=== PATIENT | female | born 1940 | race Caucasian/White ===

== ENCOUNTER → 2017-11-21 | Outpatient (CLI) | payer MEDICARE ==
[~2017-11-21] MED LIST: BONE DENSITY C1 EACH; NAPR220; VITAMIN B122500 MC1; VITAMINS
[2017-11-21 09:16] LABS: Source, Urine Clean Catch
[2017-11-21 10:11] LABS: Bilirubin, Urine Neg (Neg); Blood, Urine 3+ (Neg); Glucose Qualitative, Urine Neg (Neg); Ketones, Urine Neg (Neg); Leukocyte Esterase, Urine 1+ (Neg); Nitrite, Urine Neg (Neg); Protein, Urine Neg (Neg); Specific Gravity, Urine 1.015 (1.003-1.022); Urobilinogen, Urine NORM (Normal)
[2017-11-21 10:44] LABS: Appearance, Urine Hazy (Clear); Color, Urine Yellow (P-Yellow)
[2017-11-21 10:45] LABS: Bacteria Mod /hpf; Red Blood Cells, Urine 0-2 /hpf (0-2); Squamous Epithelial Cells Few /hpf (Few)
== END | disposition home or self-care (01) ==
LOC: LAB 09:14
PROVIDERS: Internal Medicine
DX: R31.9 Hematuria, unspecified (principal)
CPT/HCPCS: 81001; 87086

== ENCOUNTER 2019-02-11 14:29 | Emergency (ER) | payer MEDICARE ==
[~2019-02-11] VITALS: Ht 170.2 cm; Wt 90.7 kg
[2019-02-11] MEDS ORDERED: Roxicodone5 MG PO (17:01)
== END 2019-02-11 17:23 | disposition home or self-care (01) ==
LOC: ER 14:29
DX: S82.852A Displaced trimalleolar fracture of left lower leg, initial encounter for closed fracture (principal); Z88.0 Allergy status to penicillin; W18.30XA Fall on same level, unspecified, initial encounter; Z87.891 Personal history of nicotine dependence; Y92.511 Restaurant or cafe as the place of occurrence of the external cause
CPT/HCPCS: 29125; 29515; 36415; 73610; 96374-59; 99283-25; J3010

== ENCOUNTER 2019-02-25 10:52 | Day surgery (SDC) | payer MEDICARE ==
[~2019-02-25] VITALS: Ht 167.6 cm; Wt 88.0 kg
[~2019-02-25 10:52] MED LIST changes: +ALBU90OI6 INH; -BONE DENSITY C1 EACH; +BONE DENSITY C1 EACH PO; +Roxicodone5 MG PO; -VITAMIN B122500 MC1; +VITAMIN B122500 MC1 PO
--- NOTE | 2019-02-25 11:34 | NUR ---
PT ADMITTED TO [facility]. AGREES WITH PLANNED SURGER. LEFT LEG IN BRACE. LUNG SOUNDS CLEAR.
--- NOTE | 2019-02-25 11:37 | NUR ---
NO CHLOROHEXADINE WIPE OR CLIP DONE DUE TO BRACE IN PLACE.
--- NOTE | 2019-02-25 11:57 | NUR ---
PT STATES SHE IS ABLE TO REMOVE BRACE. LEFT ANKLE WITH DRIED UP BLISTERS NOTED ON LEFT ANKLE.
--- NOTE | 2019-02-25 13:12 | NUR ---
DR. VASQUEZ IN TO SEE PT, INFORMED OF OPEN BLISTER.
--- NOTE | 2019-02-25 18:11 | NUR ---
RN DEMONSTRATES USE OF WALKER. PT ABLE TO MOVE FROM SITTING TO STANDING AND NON-WT BEARING. PT ARRIVES AT 1800. PT IS DC'D AT 1812 AFTER BRIEF EVAL BY PT ON PT'S STRENGTH AND PT IS ABLE TO RETURN DEMONSTRATE PROPPER USE OF WALKER AND MOVING FROM SITTING TO STANDING POSITION AND FROM STANDING TO SITTING. Discharge instructions reviewed with patient. Patient verbalizes understanding. Copy given to patient to take home. Patient States Post-Procedure ride home has been arranged. Discharged via wheelchair to private car for ride home.
== END 2019-02-25 22:43 | disposition home or self-care (01) ==
LOC: ORSCMMR 10:52 → ORD 12:45 → ORSCMMR 12:45
PROVIDERS: Orthopaedic Surgery
PROC: 0QSH04Z Reposition Left Tibia with Internal Fixation Device, Open Approach (ICD-10-PCS; principal; 2019-02-25 12:45)
PROC: 0QSK04Z Reposition Left Fibula with Internal Fixation Device, Open Approach (ICD-10-PCS; principal; 2019-02-25 12:45)
DX: S82.842A Displaced bimalleolar fracture of left lower leg, initial encounter for closed fracture (principal); G47.33 Obstructive sleep apnea (adult) (pediatric); Z79.899 Other long term (current) drug therapy; Z87.891 Personal history of nicotine dependence
CPT/HCPCS: 97161; 97530; A9270-GY; C1713; C1769; J1100; J2250; J2405; J2704; J2710; J3010; J3370; J7120

== ENCOUNTER → 2019-09-09 | Outpatient (CLI) | payer MEDICARE | END | disposition home or self-care (01) | LOC: PLD 11:45 → LAB SHORT 11:45 | DX: D22.72 Melanocytic nevi of left lower limb, including hip (principal) | CPT/HCPCS: 88305 ==

== ENCOUNTER → 2021-03-29 | Outpatient (CLI) | payer MEDICARE | END | disposition home or self-care (01) | LOC: LAB 11:01 → LAB SHORT 11:01 | DX: D22.5 Melanocytic nevi of trunk (principal); D22.4 Melanocytic nevi of scalp and neck | CPT/HCPCS: 88305 ==

== ENCOUNTER → 2022-05-11 | Outpatient (CLI) | payer OTHER ==
[2022-05-17 07:10] LABS: HSV-1 DNA Negative (Negative); HSV-2 DNA Negative (Negative)
== END | disposition home or self-care (01) ==
LOC: LAB 15:25 → LAB SHORT 15:25
PROVIDERS: Internal Medicine
DX: B00.9 Herpesviral infection, unspecified (principal)
CPT/HCPCS: 87529

== ENCOUNTER 2022-07-19 06:05 | Day surgery (SDC) | payer OTHER ==
[~2022-07-19] VITALS: Ht 170.2 cm; Wt 91.1 kg
[~2022-07-19 06:05] MED LIST changes: +Estrace Vagin42.5 GM; +Metrocream45 GM; +ZADITOR5 M1
[2022-07-19] MEDS ORDERED: ALBU90OI INH (06:22)
[2022-07-19] MEDS ORDERED: VITAMIN B122500 MC1 PO (06:23)
--- NOTE | 2022-07-19 06:32 | NUR ---
07/19/22 0632 Isabel Laureano AT 0624 PLEDGET AT 0696
--- NOTE | 2022-07-19 08:29 | NUR ---
07/19/22 0829 Willem Briscoe PT D/C'D TO HOME, ABLE TO WALK TO CAR DRIVEN BY FRIEND WILLIAM, PT VS WNL, RESP ON RA, CTA, DENIES PAIN, DIZZINESS, N/V, PERSONAL BELONGINGS GIVEN TO PT, PT VERBALIZED UNDERSTANDING OF D/C INSTRUCTIONS AND F/U APPT. EYE SHIELD AND TAPE CDI.
== END 2022-07-19 08:24 | disposition home or self-care (01) ==
LOC: ORSCSDS 06:05
PROVIDERS: Ophthalmology
PROC: 08RJ3JZ Replacement of Right Lens with Synthetic Substitute, Percutaneous Approach (ICD-10-PCS; principal; 2022-07-19 07:30)
DX: H25.11 Age-related nuclear cataract, right eye (principal)
CPT/HCPCS: J2001; J2250; J3010; J3301; J7040; V2632

== ENCOUNTER → 2022-08-19 | Outpatient (CLI) | payer OTHER ==
[~2022-08-19] MED LIST changes: +ALBU90OI INH
[2022-08-19 15:41] LABS: BASOPHILS ABSOLUTE AUTO 0.05 K/mm3 (0.00-0.23); BASOPHILS PERCENT AUTO 1 % (0-2); EOSINOPHILS PERCENT AUTO 1 % (0-6); Hematocrit 46.6 % (33.0-51.0); Hemoglobin 15.4 g/dL (11.5-16.0); IMMATURE GRAN ABSOLUTE AUTO 0.02 K/mm3 (0.00-0.10); IMMATURE GRAN PERCENT AUTO 0 % (0-1); LYMPHOCYTES ABSOLUTE AUTO 2.48 K/mm3 (0.84-5.20); LYMPHOCYTES PERCENT AUTO 23 % (21-46); MONOCYTES ABSOLUTE AUTO 0.95 K/mm3 (0.16-1.47); MONOCYTES PERCENT AUTO 9 % (4-13); Mean Corpuscular Volume 91 fL (80-100); Mean Platelet Volume 11.7 fL (9.1-12.4); NEUTROPHILS PERCENT AUTO 67 % (41-73); Platelet Count 201 K/mm3 (150-400); RDW Coefficient Variation 13.2 % (11.7-14.2); RDW Standard Deviation 44.7 fL (35.1-46.3); Red Blood Cell Count 5.14 M/mm3 (3.80-5.20)
[2022-08-19 15:49] LABS: Albumin, Blood 3.5 g/dL (3.4-5.0); Albumin/Globulin Ratio 0.9 (0.8-1.8); Bilirubin, Total 0.6 mg/dL (0.1-1.0); Bun/Creatinine Ratio 19.5 (12.0-20.0); Calcium, Blood 8.8 mg/dL (8.5-10.1); Creatinine, Blood 0.82 mg/dL (0.40-1.00); Globulin, Blood 3.7 g/dL (2.2-4.0); Potassium, Blood 3.6 mmol/L (3.5-5.5); Total Protein, Blood 7.2 g/dL (6.4-8.2)
== END | disposition home or self-care (01) ==
LOC: LAB 15:34 → LAB SHORT 15:34
PROVIDERS: Physician Assistant Surgical
DX: R10.31 Right lower quadrant pain (principal)
CPT/HCPCS: 80053; 85025

== ENCOUNTER 2024-12-14 11:34 | Inpatient (IN) | payer OTHER ==
[2024-12-14] VITALS (30 sets, daily range): BP systolic 77–133; BP diastolic 49–94
[~2024-12-14] VITALS: Ht 172.7 cm; Wt 92.5 kg
[~2024-12-14 11:34] MED LIST changes: +VITAMIN D310 MC4
[2024-12-14] MEDS ORDERED: NS 1,000 ML IV SCH (11:45)
[2024-12-14 11:55] LABS: Hematocrit 47.7 % (33.0-51.0); Hemoglobin 15.8 g/dL (11.5-16.0); Mean Corpuscular HGB 29.1 pg (26.0-34.0); Mean Corpuscular HGB Conc 33.1 g/dL (31.5-36.5); Mean Corpuscular Volume 88 fL (80-100); Mean Platelet Volume 12.1 fL (9.1-12.4); NRBC Auto 0.3 /100 WBC (0.0-0.2); Platelet Count 257 K/mm3 (150-400); RDW Coefficient Variation 14.1 % (11.7-14.2); Red Blood Cell Count 5.43 M/mm3 (3.80-5.20); White Blood Cell Count 34.13 K/mm3 (4.00-11.30)
[2024-12-14 12:10] LABS: Albumin, Blood 2.2 g/dL (3.4-5.0); Albumin/Globulin Ratio 0.5 (0.8-1.8); Bilirubin, Total 1.6 mg/dL (0.1-1.0); Bun/Creatinine Ratio 42.9 (12.0-20.0); Calcium, Blood 9.7 mg/dL (8.5-10.1); Creatinine, Blood 1.84 mg/dL (0.40-1.00); Globulin, Blood 4.5 g/dL (2.2-4.0); Potassium, Blood 3.6 mmol/L (3.5-5.5); Total Protein, Blood 6.7 g/dL (6.4-8.2)
[2024-12-14 12:13] LABS: BAND PERCENT MAN 1 % (0-8); BASOPHILS PERCENT MAN 0 % (0-2); EOSINOPHILS PERCENT MAN 0 % (0-6); LYMPHOCYTES ABSOLUTE MAN 1.02 K/mm3 (0.84-5.20); LYMPHOCYTES PERCENT MAN 3 % (21-46); METAMYELOCYTE ABSOLUTE MAN 0.68 K/mm3 (0.00-0.00); METAMYELOCYTE PERCENT MAN 2 % (0-0); MONOCYTES ABSOLUTE MAN 2.38 K/mm3 (0.16-1.47); MONOCYTES PERCENT MAN 7 % (4-13); NEUTROPHILS ABSOLUTE MAN 30.03 K/mm3 (1.96-9.15); SEG NEUTROPHILS PERCENT MAN 87 % (41-73); TOTAL CELLS COUNTED 100
[2024-12-14] MEDS ORDERED: CefTRIAXone Sodium 1,000 MG in NS 50 ML IV ONE (12:15)
[2024-12-14] MEDS ORDERED: Azithromycin 500 MG in NS 250 ML IV ONE (12:15)
[2024-12-14] MEDS ORDERED: Calcium Gluconate 10% 100 MG/ML INJ IV ONE (12:15)
[2024-12-14] MEDS ORDERED: Diltiazem HCl 5 MG / ML 5ML Vial IV ONE (12:50)
[2024-12-14 13:19] LABS: Influenza A, PCR NEGATIVE (NEGATIVE); Influenza B, PCR NEGATIVE (NEGATIVE); Resp Syncytial Virus, PCR NEGATIVE (NEGATIVE); SARS-Cov-2 (COVID-19) PCR, MMC NEGATIVE (NEGATIVE)
[2024-12-14] MEDS ORDERED: Ondansetron 4 MG TAB PO PRN (13:45)
[2024-12-14] MEDS ORDERED: TraZODone HCl 50 MG Tab PO PRN (13:50)
[2024-12-14] MEDS ORDERED: FLU VACC TS2024-25(6MOS UP)/PF 45 MCG/0.5 ML SYRINGE IM PRN (13:50)
[2024-12-14] MEDS ORDERED: Bisacodyl 10 MG Supp PR PRN (13:50)
[2024-12-14] MEDS ORDERED: Magnesium Hydroxide Conc 10 ML UDC PO PRN (13:50)
[2024-12-14] MEDS ORDERED: Esmolol HCL 2500mg/250ml Prema 250 ML IV SCH (13:50)
[2024-12-14] MEDS ORDERED: Ipratropium/Albuterol SulF 2.5-0.5MG/3 ML Amp INH SCH (14:00)
[2024-12-14] MEDS ORDERED: Benzonatate 100 MG Cap PO PRN (14:05)
[2024-12-14] MEDS ORDERED: Aspirin 325 MG Tab PO ONE (14:05)
[2024-12-14] MEDS ORDERED: Mometasone/Formoterol MDI 200/5 mcg 13 GM INH SCH (14:10)
[2024-12-14] MEDS ORDERED: Midazolam HCl 1MG / ML 2ML Vial ONE (15:37)
--- NOTE | 2024-12-14 15:44 | NUR ---
CARDIOVERSION DR. FRANCO AT BEDSIDE. 1544 - 1 MG VERSED ADMINISTERED 1547 - MONITOR SHOWS AFIB RVR c HR OF 122, BP 65/51. SHOCK OF 200J SYNC GIVEN 1548 - CONVERTED TO SINUS RHYTHM, PULSE 74, O2 93%, RR 22. 1551 - ESMOLOL ON SB PER DR. FRANCO, BP 81/60, PULSE 79, O2 93%
[2024-12-14] MEDS ORDERED: Midazolam HCl 1MG / ML 2ML Vial IV ONE (15:55)
[2024-12-14] MEDS ORDERED: Amiodarone HCl 450 MG in Dextrose 5% 500 ML IV SCH (16:25)
[2024-12-14] MEDS ORDERED: Furosemide 10 MG/ML 10ML Vial IV ONE (16:25)
[2024-12-14 17:53] LABS: Source, Urine Foley catheter
[2024-12-14 17:57] LABS: Appearance, Urine Hazy (Clear); Blood, Urine 1+ (Neg); Color, Urine Amber (P-Yellow); Glucose Qualitative, Urine Neg (Neg); Ketones, Urine 1+ (Neg); Leukocyte Esterase, Urine 1+ (Neg); Nitrite, Urine Neg (Neg); Protein, Urine 2+ (Neg); Specific Gravity, Urine 1.015 (1.003-1.022); Urobilinogen, Urine 2+ (Normal)
[2024-12-14] MEDS ORDERED: Midodrine 5 MG Tab PO SCH (18:00)
--- NOTE | 2024-12-14 18:06 | NUR ---
ASSUMED CARE OF PATIENT AT 1509 UPON ADMIT TO UNIT FROM ED. PT ARRIVED ON CPAP SUBSEQUENT, SWITCHED TO 15LPM NRB FOR TRANSFER TO ICU BED, THEN BACK ON CPAP c SETTINGS OF 7/70%. CONTINUOUS CARDIAC MONITORING SHOWS AFIB c HR UP TO 150'S. BP 78/58 c MAP OF 66. ESMOLOL INFUSING AT 25 MCG/KG/HR UPON ADMIT TO UNIT. PT ASKED TO PROVIDE HER NAME AND SHE STATED HER FIRST NAME, THEN STARTED SPELLING OUT WORDS. NOT FOLLOWING COMMANDS, NOT EASILY REDIRECTABLE. MAKES PURPOSEFUL MOVEMENTS, AND ATTEMPTED TO REMOVE BIPAP SEVERAL TIMES. SEE ADMIT ASSESSMENT FOR FULL DETAILS.
--- NOTE | 2024-12-14 18:24 | NUR ---
SHIFT SUMMARY PT CONTINUES TO BE ORIENTED TO PERSON/SELF ONLY. REQUIRES REDIRECTION TO LEAVE CPAP MASK ALONE, BUT COOPERATIVE WITH CARE AND FOLLOWS COMMANDS. PT BACK IN AFIB c HR UP TO 150'S, DR. FRANCO AWARE. AMIO INFUSING. BP STABLE c MAP > 65. LEVOPHED INFUSING AT 1 MCG/KG/MIN, SBP GOAL OF > [address] FRANCO. CPAP SETTINGS 7/70%, O2 SATURATION > 92%. WILL CONTINUE TO MONITOR AND REPORT TO ONCOMING RN.
[2024-12-14 18:33] LABS: Bilirubin, Urine 1+ (Neg)
[2024-12-14 18:34] LABS: Red Blood Cells, Urine 0-2 /hpf (0-2); Squamous Epithelial Cells Rare /hpf (Few)
[2024-12-14 18:35] LABS: Bacteria Many /hpf; Transitional Epithelial Cells Rare /hpf (0-Rare)
[2024-12-14] MEDS ORDERED: dexmedeTOMIDine 100 ML IV SCH (19:20)
[2024-12-14] MEDS ORDERED: Lactobacil 2-S.Thermo-Bifido 1 1 Cap PO SCH (21:00)
[2024-12-15] VITALS (84 sets, daily range): BP systolic 68–150; BP diastolic 37–99
[2024-12-15] MEDS ORDERED: Metoprolol Tartrate 1 MG/ML 5 ML VIAL IV ONE (00:05)
[2024-12-15] MEDS ORDERED: Metoprolol Tartrate 5 ML IV ONE (00:09)
[2024-12-15 00:59] LABS: Bun/Creatinine Ratio 48.6 (12.0-20.0); Calcium, Blood 9.3 mg/dL (8.5-10.1); Creatinine, Blood 1.81 mg/dL (0.40-1.00); Magnesium, Blood 2.6 mg/dL (1.6-2.4); Potassium, Blood 3.5 mmol/L (3.5-5.5)
--- NOTE | 2024-12-15 01:15 | NUR ---
PATIENT UPDATE AT APPROX 2353 PT RHYTHM TO 174 AFIB W/ RVR. PROVIDER NII UPDATED. ORDERS FOR 5MG LOPRESSOR IV RECIEVED. ADMINISTERED W/ MINIMAL EFFECT. HR RETURNS TO 160-180S AFTER 10/15MINS. PT RESTLESS ON BED. SHAKES HEAD NO WHEN ASKED IF SHE HAS CP OR SOB. PRECEDEX DRIP UP TO 1.0MCG/KG/HR, LEVOPHED AT 2MCG/MIN.
[2024-12-15] MEDS ORDERED: Potassium Chloride 40 MEQ in NS 250 ML IV ONE ×2 (01:40→06:40)
--- NOTE | 2024-12-15 02:16 | NUR ---
DR. BALES TO BEDSIDE TO EVALUATE PT
[2024-12-15] MEDS ORDERED: NS 1,000 ML IV SCH ×2 (02:25→06:00)
[2024-12-15] MEDS ORDERED: NS 500 ML IV SCH (02:25)
[2024-12-15] MEDS ORDERED: NS 500 ML IV ONE (02:31)
--- NOTE | 2024-12-15 02:31 | NUR ---
PT "ADOPTED SON" & POA NICOLE ESTEVES CONTACTED & UPDATE PROVIDED, PT HR AFIB W RVR UP TO 180 & SEVERAL INTERVENTIONS BY PRIMARY RN INITIATED & DR BALES AT BEDSIDE AT THIS TIME. DISCUSSED THE POSSIBILITY THAT PT MAY NEED TO BE CARDIOVERTED AGAIN. SANDY VERBALIZES UNDERSTANDING.
[2024-12-15 04:01] LABS: Hematocrit 41.4 % (33.0-51.0); Hemoglobin 13.7 g/dL (11.5-16.0); Mean Corpuscular HGB 29.2 pg (26.0-34.0); Mean Corpuscular HGB Conc 33.1 g/dL (31.5-36.5); Mean Corpuscular Volume 88 fL (80-100); NRBC ABSOLUTE 0.12 K/mm3 (0.00-0.02); NRBC Auto 0.4 /100 WBC (0.0-0.2); Platelet Count 226 K/mm3 (150-400); RDW Coefficient Variation 14.4 % (11.7-14.2); RDW Standard Deviation 45.9 fL (35.1-46.3); Red Blood Cell Count 4.69 M/mm3 (3.80-5.20); White Blood Cell Count 30.37 K/mm3 (4.00-11.30)
[2024-12-15 04:22] LABS: BAND PERCENT MAN 13 % (0-8); BASOPHILS PERCENT MAN 0 % (0-2); EOSINOPHILS PERCENT MAN 0 % (0-6); LYMPHOCYTES ABSOLUTE MAN 0.91 K/mm3 (0.84-5.20); LYMPHOCYTES PERCENT MAN 3 % (21-46); METAMYELOCYTE PERCENT MAN 2 % (0-0); MONOCYTES ABSOLUTE MAN 3.34 K/mm3 (0.16-1.47); MONOCYTES PERCENT MAN 11 % (4-13); NEUTROPHILS ABSOLUTE MAN 25.51 K/mm3 (1.96-9.15); SEG NEUTROPHILS PERCENT MAN 71 % (41-73); TOTAL CELLS COUNTED 100
[2024-12-15 04:24] LABS: Albumin, Blood 1.9 g/dL (3.4-5.0); Albumin/Globulin Ratio 0.5 (0.8-1.8); Bilirubin, Total 0.9 mg/dL (0.1-1.0); Bun/Creatinine Ratio 48.1 (12.0-20.0); Calcium, Blood 8.9 mg/dL (8.5-10.1); Creatinine, Blood 1.85 mg/dL (0.40-1.00); Magnesium, Blood 2.7 mg/dL (1.6-2.4); Potassium, Blood 3.8 mmol/L (3.5-5.5); Total Protein, Blood 5.9 g/dL (6.4-8.2)
--- NOTE | 2024-12-15 05:30 | NUR ---
NOC SHIFT SUMMARY PT ORIENTED TO SELF, ABLE TO REDIRECT W/ CONSISTENT REINFORCEMENT. PT SITTING UP IN BED, PULLING AT MASK AND LINES T/O SHIFT. PRECEDEX DRIP INITIATED DURING SHIFT, CURRENTLY RUNNING AT 1MCG/KG/HR, LEVOPHED AT 1MCG/MIN, AMIODARONE AT 0.5MG/MIN. NS @125/HR. PT REMAINS ON CPAP- SETTINGS UNCHAGED- SEE RT NOTES FOR FURTHER DETAILS. PT HR CURRENTLY 120-140S, AFIB. PT HR INCREASED AT APPROX 0000 TO 160-190S. PROVIDER NII TO ROOM FOR PT EVAL. PT ADOPTED SON (NICOLE) CONTACTED TO DISCUSS POSSIBILITY OF NEED TO CARDIOVERT PT AND WAS AGREEABLE. PT GIVEN FLUID BOLUS DURING EVENT AND RESPONDED WELL W/ DECREASED RATE. LEVO TITRATED TO MAINTAIN MAP>65. PT AFEBRILE. NO BM DURING SHIFT. URINE OUTPUT DECREASED- PROVIDER AWARE. CALL LIGHT W/ IN REACH. PLAN OF CARE ONGOING.
[2024-12-15] MEDS ORDERED: Famotidine 20 MG Tab PO SCH (06:00)
[2024-12-15] MEDS ORDERED: Albumin (Human) 25gm/100ml 100 ML IV ONE (06:40)
--- NOTE | 2024-12-15 07:37 | NUR ---
ASSUMED CARE OF PATIENT AT APPROXIMATELY 0700. REPORT RECEIVED FROM ARGELIA WITT. PT ASLEEP IN BED DURING BEDSIDE REPORT. CONTINUOUS CARDIAC MONITORING IN PLACE SHOWS SR, AMIO INFUSING AT 0.5 MG/MIN. BP STABLE c MAP > 65, LEVOPHED ON SB. CPAP SETTINGS 7/70%, O2 SATURATION > 92%. KOVACS PATENT. PRECEDEX INFUSING AT 1 MCG/KG/HR. SEE SHIFT ASSESSMENT FOR FULL DETAILS.
[2024-12-15 07:57] LABS: Adenovirus Not Detected (NOT DETECT); Coronavirus 229E Not Detected (NOT DETECT); Coronavirus HKU1 Not Detected (NOT DETECT); Coronavirus NL63 Not Detected (NOT DETECT); Coronavirus OC43 Not Detected (NOT DETECT)
[2024-12-15 07:58] LABS: Human Metapneumovirus Not Detected (NOT DETECT); Human Rhinovirus/Enterovirus Not Detected (NOT DETECT); SARS-Cov-2 (COVID-19), BioFire Not Detected (NOT DETECT)
[2024-12-15 07:59] LABS: Bordetella pertussis Not Detected (NOT DETECT); Chlamydophila pneumoniae Not Detected (NOT DETECT); Influenza A/2009-H1 Not Detected (NOT DETECT); Influenza A/H1 Not Detected (NOT DETECT); Influenza A/H3 Not Detected (NOT DETECT); Influenza B Not Detected (NOT DETECT); Mycoplasma pneumoniae Not Detected (NOT DETECT); Parainfluenza Virus 1 Not Detected (NOT DETECT); Parainfluenza Virus 2 Not Detected (NOT DETECT); Parainfluenza Virus 3 Not Detected (NOT DETECT); Parainfluenza Virus 4 Not Detected (NOT DETECT); Respiratory Syncytial Virus Not Detected (NOT DETECT)
[2024-12-15] MEDS ORDERED: Azithromycin 500 MG in NS 250 ML IV SCH (09:00)
[2024-12-15] MEDS ORDERED: Loratadine 10 MG Tab PO SCH (09:00)
[2024-12-15] MEDS ORDERED: Enoxaparin 30 MG/0.3 ML SYR SC SCH ×2 (09:00→21:00)
[2024-12-15] MEDS ORDERED: CefTRIAXone Sodium 2,000 MG in NS 100 ML IV SCH (09:00)
[2024-12-15] MEDS ORDERED: NS 1,000 ML BAG IR SCH (09:10)
[2024-12-15] MEDS ORDERED: NS 250 ML IV PRN (09:15)
[2024-12-15] MEDS ORDERED: LORazepam 2 MG/ML 1ML Injection IV PRN (10:00)
--- NOTE | 2024-12-15 16:14 | NUR ---
"Spiritiual Care | Family Request Pt. is somnolent and on a Bi-pap when this turf keeper visits at bedside. After several attempts to rouse the Pt. Scripture is read, as is the Lord's Prayer as Pts. chart identified her as Temple. Will remain availabel to the Pt."
[2024-12-15] MEDS ORDERED: MethylPREDNISolone Sod Succ 125 MG Vial IV SCH (16:44)
--- NOTE | 2024-12-15 18:07 | NUR ---
NO ACUTE CHANGES THIS SHIFT. PT REMAINS ORIENTED TO SELF ONLY, REQUIRES CONSISTENT REDIRECTION. PT REMAINS IN SINUS RHYTHM WITH HR IN 60'S-80'S. BP STABLE c MAP > 65, LEVO REMAINS ON SB. CPAP SETTINGS 7/35%. PRECEDEX INFUSING AT 1 MCG/KG/HR. ATIVAN X 1 FOR INCREASED AGITATION WITH GOOD BENEFIT. WILL CONTINUE TO MONITOR AND REPORT TO ONCOMING RN.
--- NOTE | 2024-12-15 21:14 | NUR ---
ASSUMPTION OF CARE/ASSESSMENT: ASSUMED CARE OF PT AT 1900, REPORT RECIEVED FROM DENNY STOUT. PT CURRENTLY ON CPAP WITH SETTING AT 7, FIO2 35%, SPO2 90<. PT SEDATED WITH PRECEDEX @ 1.0 MCG, RESPONSIVE TO PAIN AT THIS TIME. SR ON MONITOR WITH HR 60'S, BP STABLE. PT NPO DUE TO ASPIRATION RISK AT THIS TIME. AMIO GTT TURNED OFF AT 1921 PER ORDER. KOVACS PATENT AND DRAINING TO GRAVITY. BED LOWERED, CALL LIGHT IN REACH.
[2024-12-16] VITALS (79 sets, daily range): BP systolic 96–158; BP diastolic 71–98
--- NOTE | 2024-12-16 05:36 | NUR ---
SHIFT SUMMARY: NO ACUTE CHANGES OVERNIGHT; VSS THROUGHOUT THE SHIFT. PT REMAINS ON CPAP WITH SETTINGS 7/35%. PT CONTINUES TO BE CONFUSED, PULLING AT LINES/CORDS; PRECEDEX GTT @ 1.0 MCG. FOELY PATENT AND DRAINING TO GRAVITY. BED LOWERED, CALL LIGHT IN REACH, WILL REPORT OFF TO ONCOMING RN.
[2024-12-16 06:21] LABS: Hematocrit 42.2 % (33.0-51.0); Hemoglobin 14.1 g/dL (11.5-16.0); Mean Corpuscular HGB 29.5 pg (26.0-34.0); Mean Corpuscular HGB Conc 33.4 g/dL (31.5-36.5); Mean Corpuscular Volume 88 fL (80-100); NRBC ABSOLUTE 0.02 K/mm3 (0.00-0.02); NRBC Auto 0.1 /100 WBC (0.0-0.2); Platelet Count 193 K/mm3 (150-400); RDW Coefficient Variation 14.6 % (11.7-14.2); Red Blood Cell Count 4.78 M/mm3 (3.80-5.20); White Blood Cell Count 22.13 K/mm3 (4.00-11.30)
[2024-12-16 06:49] LABS: BAND PERCENT MAN 2 % (0-8); BASOPHILS PERCENT MAN 0 % (0-2); EOSINOPHILS ABSOLUTE MAN 0.22 K/mm3 (0.00-0.68); EOSINOPHILS PERCENT MAN 1 % (0-6); LYMPHOCYTES % ATYPICAL MANUAL 1 % (0-0); LYMPHOCYTES ABSOLUTE MAN 0.88 K/mm3 (0.84-5.20); LYMPHOCYTES PERCENT MAN 3 % (21-46); METAMYELOCYTE ABSOLUTE MAN 0.88 K/mm3 (0.00-0.00); METAMYELOCYTE PERCENT MAN 4 % (0-0); MONOCYTES ABSOLUTE MAN 0.66 K/mm3 (0.16-1.47); MONOCYTES PERCENT MAN 3 % (4-13); NEUTROPHILS ABSOLUTE MAN 19.47 K/mm3 (1.96-9.15); SEG NEUTROPHILS PERCENT MAN 86 % (41-73); TOTAL CELLS COUNTED 100
[2024-12-16 07:01] LABS: Albumin, Blood 2.3 g/dL (3.4-5.0); Albumin/Globulin Ratio 0.6 (0.8-1.8); Bilirubin, Total 0.8 mg/dL (0.1-1.0); Bun/Creatinine Ratio 76.9 (12.0-20.0); Calcium, Blood 8.9 mg/dL (8.5-10.1); Creatinine, Blood 1.04 mg/dL (0.40-1.00); Globulin, Blood 3.7 g/dL (2.2-4.0); Magnesium, Blood 2.8 mg/dL (1.6-2.4); Phosphorus, Blood 3.5 mg/dL (2.5-4.9); Potassium, Blood 4.1 mmol/L (3.5-5.5)
[2024-12-16] MEDS ORDERED: Furosemide 10 MG / ML 2ML Vial IV ONE (07:25)
[2024-12-16] MEDS ORDERED: Albumin (Human) 25gm/100ml 100 ML IV ONE (07:30)
[2024-12-16] MEDS ORDERED: Famotidine 20 MG Tab PO SCH (09:00)
[2024-12-16] MEDS ORDERED: Cefepime HCl 2,000 MG in NS 100 ML IV SCH (09:00)
--- NOTE | 2024-12-16 09:41 | NUR ---
ASSUMED CARE OF PATIENT AT APPROXIMATELY 0700. REPORT RECEIVED FROM ARGELIA BUSTAMANTE. PT SEDATED ON PRECEDEX AT 1.0 MCG/KG/HR AT TIME OF BEDSIDE REPORT. NOT FOLLOWING COMMANDS OR MAKING PURPOSEFUL MOVEMENTS. CONTINUOUS CARDIAC MONITORING SHOWS STACH, BP STABLE c MAP > 65. KOVACS PATENT. CPAP IN PLACE, O2 SATURATIONS > 92%. SEE SHIFT ASSESSMENT FOR FULL DETAILS.
[2024-12-16] MEDS ORDERED: LORazepam 2 MG/ML 1ML Injection IV PRN (13:20)
[2024-12-16] MEDS ORDERED: TPN Consult Notification XX ONE (13:35)
[2024-12-16 15:15] LABS: Base Excess Venous 2.2 mmol/L; Bicarbonate Venous 26.4 mmol/L (24.0-30.0); PCO2 Venous 36.9 mmHg (38-42); pH Blood Venous 7.46 (7.34-7.37)
--- NOTE | 2024-12-16 15:37 | NUR ---
1ST YEAR SIGN HANGER ANDIE HERNANDEZ WITH THIS RN TODAY. INTERVENTIONS THAT WERE CHARTED UNDER HER NAME WERE UNDER THIS RN'S DIRECTION AND SUPERVISION.
--- NOTE | 2024-12-16 15:49 | NUR ---
Spiritual Care Pt. is intubated and generally somnolment. Non family are present Prayed for the Pt. Will remain available to the Pt. and family.
[2024-12-16] MEDS ORDERED: [UNRECOGNIZED DRUG - NUTRITION] IV SCH (17:00)
--- NOTE | 2024-12-16 17:02 | NUR ---
SHIFT SUMMARY PT REMAINS ON PRECEDEX AT 0.8 MCG/KG/HR. PT REMAINS CONFUSED AND PULLS AT LINES AND CORDS. CONTINUOUS CARDIAC MONITORING IN PLACE SHOWS SR WITH PAC'S. BP STABLE c MAP > 65. SWITCHED TO 13LPM HFNC AT APPROXIMATELY 1545. PT TOLERATING WELL c O2 SATURATION > 92%. PPN TO BE INITIATED THIS SHIFT. CBG 192, GOAL OF < [address] FRANCO. BETHANIE PATENT, DIURESED THIS SHIFT. WILL CONTINUE TO MONITOR AND REPORT TO ONCOMING RN.
--- NOTE | 2024-12-16 19:00 | NUR ---
ASSUMPTION OF CARE PT LYING IN BED SEDATED ON 13L HFNC WITH SATURATION >94%. LUNGS ARE COARSE AND VERY DIMINISHED ON THE RIGHT. PT HAS H/O OF POOR CPAP/BIPAP COMPLIANCE BUT WILL ATTEMPT NIGHT TIME USE. PT GROANS AND MOVES EXTREMITIES WHEN AWOKEN WITH VOICE, AND FOLLOWS SOME COMMANDS. NON-VERBAL. A FEBRILE. PRECEDEX INFUSING AT 0.8 MCG/KG/HR. ONE GOAL WILL BE ATTEMPTING DECREASE OF PRECEDEX IN ORDER TO TRY AND CLEAR PT NEUROLOGICALLY. SINUS RHYTHM W PAC'S TO IRREGULAR 80/MIN TO 100/MIN. WILL MONITOR. PER MARIANA NOTE AND HANDOFF REPORT, AMIODARONE WILL BE RESTARTED IF A FIB RVR RETURNS. KOVACS DRAINING TO GRAVITY. CALL LIGHT HANDY. WILL CONTINUE PLAN OF CARE AND MODIFY NEEDED.
[2024-12-17] VITALS (25 sets, daily range): BP systolic 105–159; BP diastolic 67–120
[2024-12-17 04:17] LABS: Hematocrit 42.6 % (33.0-51.0); Mean Corpuscular HGB 29.5 pg (26.0-34.0); Mean Corpuscular HGB Conc 32.9 g/dL (31.5-36.5); Mean Corpuscular Volume 90 fL (80-100); Mean Platelet Volume 12.7 fL (9.1-12.4); NRBC ABSOLUTE 0.02 K/mm3 (0.00-0.02); NRBC Auto 0.1 /100 WBC (0.0-0.2); Platelet Count 207 K/mm3 (150-400); RDW Coefficient Variation 14.5 % (11.7-14.2); RDW Standard Deviation 48.2 fL (35.1-46.3); Red Blood Cell Count 4.75 M/mm3 (3.80-5.20); White Blood Cell Count 22.62 K/mm3 (4.00-11.30)
[2024-12-17 04:35] LABS: Alanine Aminotransfer (ALT/SGP 22 U/L (12-78); Albumin, Blood 2.6 g/dL (3.4-5.0); Albumin/Globulin Ratio 0.8 (0.8-1.8); Alk Phos 57 U/L (50-136); Anion Gap 6 mmol/L (3-11); Aspartate Aminotrans (AST/SGOT 11 U/L (12-37); Bilirubin, Total 0.8 mg/dL (0.1-1.0); Blood Urea Nitrogen 63 mg/dL (8-24); Bun/Creatinine Ratio 76.3 (12.0-20.0); CO2, Blood 30 mmol/L (21-32); Calcium, Blood 8.9 mg/dL (8.5-10.1); Chloride, Blood 116 mmol/L (98-108); Creatinine, Blood 0.83 mg/dL (0.40-1.00); Globulin, Blood 3.4 g/dL (2.2-4.0); Glomerular Filtration Rate 70 (60-); Glucose, Blood 281 mg/dL (70-99); Magnesium, Blood 2.7 mg/dL (1.6-2.4); Phosphorus, Blood 2.8 mg/dL (2.5-4.9); Potassium, Blood 3.2 mmol/L (3.5-5.5); Sodium, Blood 149 mmol/L (136-145); Triglycerides 170 mg/dL (30-160)
[2024-12-17] MEDS ORDERED: Potassium Chloride 40 MEQ in NS 250 ML IV ONE (05:40)
[2024-12-17] MEDS ORDERED: Pantoprazole Sodium 40 MG Injection IV SCH (06:00)
[2024-12-17] MEDS ORDERED: Insulin Human Lispro 100 Units/ML 3ML Syringe SC SCH (07:30)
--- NOTE | 2024-12-17 07:46 | NUR ---
SHIFT SUMMARY PT LYING IN BED SQUIRMING, AWAKE, BUT ORIENTATION DIFFICULT TO ASSESS DUE TO NON VERBAL. PT FOLLOWS SOME COMMANDS. PRECEDEX AT 0.6 MCG/KG/HR. PT HAS NOT TRIED TO GRAB AT ANY LINES YET. HR SINUS RHYTHM IN THE 80'S WITH FREQUENT PAC'S, BORDERLINE IRREGULAR RHYTHM AT TIMES, BUT PT DID NOT TRANSITION TO A FIB DURING SHIFT. BP REMAINED STABLE WITH SBP OF 120-150. AT START OF SHIFT, PT QUICKLY TRANSITIONED FROM 13 HFNC TO CPAP 7/50% AND SHE WAS COMPLIANT FOR ALL BUT 2 HOURS OF SHIFT. AT END OF SHIFT, ABOUT 0530, PT PUT ON 10LPM OF HUMIDIFIED HFNC WITH SATURATION OF 93%. NO BM DURING SHIFT. KOVACS PATENT AND DRAINING YELLOW URINE TO GRAVITY. OUTPUT OF 730ML DURING SHIFT. PT HAS CALL LIGHT. REPORT GIVEN TO ONCOMING NURSE.
[2024-12-17] MEDS ORDERED: Furosemide 10 MG/ML 4ML Vial IV ONE (08:00)
[2024-12-17] MEDS ORDERED: MethylPREDNISolone Sod Succ 125 MG Vial IV SCH (09:00)
[2024-12-17] MEDS ORDERED: Enoxaparin 40 MG/0.4 ML SYR SC SCH (09:00)
--- NOTE | 2024-12-17 10:18 | NUR ---
Assumed care of pt at 0700. Bedside report received from Diogenes STOUT. Pt initially on precedex at 0.6 mcg/kg/hr. RASS -1 to +1. On 10 LPM NC, humidified, to maintain SpO2 90% or greater. Dr Armstrong and Dr Marrero in to see patient this AM. Plan of care discussed. One visitor stopped outside of room briefly for an update - self identified as POA. Pt has since been lifted to recliner and precedex has been titrated off. RASS remains -1 to +1. Oral care performed, pt's mouth is dry and plaque coated. Dental hygenist consult placed.
[2024-12-17] MEDS ORDERED: Fluconazole 200MG/Iso-Sod 100M 100 ML IV ONE (10:25)
--- NOTE | 2024-12-17 10:30 | NUR ---
SpO2 dropped to mid/high 80s. Changed delivery from NC to oxymask with no resolution. Increased from 10 LPM to 15 LPM and SpO2 increased.
[2024-12-17] MEDS ORDERED: TPN Consult Notification XX ONE (11:55)
--- NOTE | 2024-12-17 11:55 | NUR ---
SpO2 mid/high 80s with 15 LPM oxymask. RT administered breathing tx, no improvement. Placed pt on CPAP, no improvement. Placed on BiPAP 14/8 with 100% FiO2. On these settings for approx 10 minutes before SpO2 recovered. Call placed to Dr Armstrong to update.
[2024-12-17] MEDS ORDERED: Metoprolol Tartrate 1 MG/ML 5 ML VIAL IV SCH ×2 (12:00→18:00)
[2024-12-17 13:05] LABS: Base Excess Venous 6.8 mmol/L; Bicarbonate Venous 29.1 mmol/L (24.0-30.0); PCO2 Venous 47.9 mmHg (38-42); pH Blood Venous 7.42 (7.34-7.37)
[2024-12-17 13:19] LABS: Hematocrit 43.9 % (33.0-51.0); Hemoglobin 14.2 g/dL (11.5-16.0); Mean Corpuscular HGB 29.2 pg (26.0-34.0); Mean Corpuscular HGB Conc 32.3 g/dL (31.5-36.5); Mean Corpuscular Volume 90 fL (80-100); Mean Platelet Volume 12.7 fL (9.1-12.4); NRBC ABSOLUTE 0.03 K/mm3 (0.00-0.02); NRBC Auto 0.1 /100 WBC (0.0-0.2); Platelet Count 247 K/mm3 (150-400); RDW Coefficient Variation 14.6 % (11.7-14.2); RDW Standard Deviation 48.3 fL (35.1-46.3); Red Blood Cell Count 4.87 M/mm3 (3.80-5.20); White Blood Cell Count 29.52 K/mm3 (4.00-11.30)
[2024-12-17 13:38] LABS: Bun/Creatinine Ratio 64.1 (12.0-20.0); Calcium, Blood 8.8 mg/dL (8.5-10.1); Creatinine, Blood 0.92 mg/dL (0.40-1.00); Potassium, Blood 4.3 mmol/L (3.5-5.5)
[2024-12-17] MEDS ORDERED: Vancomycin HCL 2,000 MG in NS 500 ML IV ONE (15:30)
[2024-12-17] MEDS ORDERED: Metoprolol Tartrate 1 MG/ML 5 ML VIAL IV ONE (16:05)
[2024-12-17] MEDS ORDERED: MetroNIDAZOLE 500MG/NS 100 ml 100 ML IV SCH (16:30)
[2024-12-17] MEDS ORDERED: [UNRECOGNIZED DRUG - NUTRITION] IV SCH (17:00)
[2024-12-17] MEDS ORDERED: Metoprolol Tartrate 1 MG/ML 5 ML VIAL IV PRN (17:00)
[2024-12-17] MEDS ORDERED: Ipratropium/Albuterol SulF 2.5-0.5MG/3 ML Amp INH PRN (17:10)
[2024-12-17] MEDS ORDERED: Oseltamivir Phosphate 75 MG Cap PO ONE (18:00)
--- NOTE | 2024-12-17 18:45 | NUR ---
SUMMARY Neuro: Precedex has been stopped since this AM. Pt remains either RASS -1 or +1. Pt remains only responsive to painful stimulus. Moves all extremities spontaneously. Resp: Dr Lara in to see patient. Recommended transition to AirVo, Currently on 50 LPM and 40% FiO2. SpO2 93%. Rhonchi in all lung roberts. Weak, nonproductive cough. Cardiac: Pt had converted to atrial fibrillation with RVR this shift. After most recent dose of IV push metoprolol, converted back to sinus arrhythmia. BP stable. GI: Dobhoff placed per orders of Dr Lara. Plan to transition to enteral feedings tomorrow. Placement verified with CXR. : Good urine output this shift. Skin: Unchanged from initial assessment. Psychosocial: This RN updated pt's POAs.
--- NOTE | 2024-12-17 20:56 | NUR ---
ASSUMPTION OF CARE PT LYING IN BED SQUIRMING, ALERT, TRYING TO RESPOND TO QUESTIONS AND WILLING TO FOLLOW SOME COMMANDS. SINUS RHYTHM WITH PAC'S 75-100 AND STABLE BP. >92% SATURATION ON 50L/MIN AND 39% FIO2. DOBHOFF IN PLACE BUT TPN WILL CONTINUE FOR TONIGHT. NO CHEST PAIN/PRESSURE, SOB, N/V, AB PAIN. KOVACS IN PLACE.
[2024-12-17] MEDS ORDERED: Amiodarone HCl 200 MG Tab PO SCH (21:00)
[2024-12-17] MEDS ORDERED: Metoprolol Tartrate 50 MG Tab PT SCH (21:00)
[2024-12-17] MEDS ORDERED: Enoxaparin 80 MG/0.8 ML SYR SC SCH (21:00)
[2024-12-18] VITALS (32 sets, daily range): BP systolic 113–161; BP diastolic 45–125
[2024-12-18] MEDS ORDERED: Insulin Human Lispro 100 Units/ML 3ML Syringe SC SCH
--- NOTE | 2024-12-18 02:18 | NUR ---
TRANFER OF CARE PT LYING IN BED SQUIRMING, AWAKE, BUT ORIENTATION DIFFICULT TO ASSESS DUE TO NON VERBAL/SEVERE MUMBLE. PT FOLLOWS SOME COMMANDS. PT ONLY RECENTLY TRIED TO GRAB AT ANY LINES BUT WAS REDIRECTABLE. HR SINUS RHYTHM IN THE 70'S WITH FREQUENT PAC'S, BORDERLINE IRREGULAR RHYTHM AT TIMES, BUT PT DID NOT TRANSITION TO A FIB DURING SHIFT. BP REMAINED STABLE WITH SBP OF 120-150. PT HAS BEEN ON AIRVO 50L/MIN AND 38% FIO2 WITH SATURATION OF 93% OR GREATER. COUGH IS GETTING STRONGER- ORDER IS IN FOR A SPUTUM SAMPLE. NO BM DURING SHIFT. KOVACS PATENT AND DRAINING YELLOW URINE TO GRAVITY. REPORT GIVEN TO YARA STOUT AT 0215 AND CARE TRANSFERED THEN.
[2024-12-18 04:03] LABS: Hemoglobin 14.1 g/dL (11.5-16.0); Mean Corpuscular HGB 29.4 pg (26.0-34.0); Mean Corpuscular Volume 92 fL (80-100); Mean Platelet Volume 12.8 fL (9.1-12.4); NRBC ABSOLUTE 0.03 K/mm3 (0.00-0.02); NRBC Auto 0.1 /100 WBC (0.0-0.2); Platelet Count 256 K/mm3 (150-400); RDW Coefficient Variation 14.6 % (11.7-14.2); RDW Standard Deviation 49.2 fL (35.1-46.3); Red Blood Cell Count 4.79 M/mm3 (3.80-5.20); White Blood Cell Count 39.06 K/mm3 (4.00-11.30)
--- NOTE | 2024-12-18 04:15 | NUR ---
ASSUMED CARE OF PT AT 0215 FROM ARGELIA SILVER. PT PRESENTS IN BED. WEARING AIRVO AT 50 L/M WITH FIO2 39 PERCENT. PT TENDS TO KEEP HER MOUTH OPEN, ALTHOUGH IS ABLE TO MAINTAINS SATURATIONS > 90 PERCENT. OF NOTE: PT'S TONGUE HAS PATCHY WHITE, YEAST-LIKE, PLAQUES. PT TURNED IN BED WHICH SHE TOLERATED FAIR. BREAK FROM SCD'S DONE AT THIS TIME. WILL CONTINUE TO MONITOR.
[2024-12-18 04:25] LABS: Albumin, Blood 2.6 g/dL (3.4-5.0); Albumin/Globulin Ratio 0.8 (0.8-1.8); Bilirubin, Total 1.1 mg/dL (0.1-1.0); Bun/Creatinine Ratio 66.9 (12.0-20.0); Calcium, Blood 9.1 mg/dL (8.5-10.1); Creatinine, Blood 0.82 mg/dL (0.40-1.00); Globulin, Blood 3.2 g/dL (2.2-4.0); Magnesium, Blood 2.5 mg/dL (1.6-2.4); Phosphorus, Blood 2.6 mg/dL (2.5-4.9); Total Protein, Blood 5.8 g/dL (6.4-8.2)
--- NOTE | 2024-12-18 06:30 | NUR ---
HAVE USED YANKEUR TO SUCTION ORAL. PT HAS COUGH WITH THIS. WAS ABLE TO REMOVE SMALL AMOUNT OF CREAM COLORED SECRETIONS. PT HAS HAD A HACKY TYPE COUGH. THIS CLEARED SOME AFTER SUCTIONING. WILL CONTINUE TO MONITOR PT, AND WILL REPORT OFF TO ONCOMING RN.
[2024-12-18] MEDS ORDERED: MethylPREDNISolone Sod Succ 125 MG Vial IV SCH (09:00)
[2024-12-18] MEDS ORDERED: Oseltamvir Phosphate 30 MG Cap PO SCH (09:00)
--- NOTE | 2024-12-18 15:24 | NUR ---
NIKOS HAS BEGAN WAKING UP MORE AND IS PULLING OUT HER HFNC, WHEN SHE MOVES IT OUT AND HAS IT FLUSH AGAINST HER FACE HER SATURATIONS BEGIN TO DROP. DISCUSSED WITH , SHE ASKS TO RESTART PRECEDEX DRIP. PRECEDEX DRIP INITIATED AT 0.4, THEN TITRATED TO 0.6 FOR CONTINUED RESTLESS/AGITATION. PT'S BP WAS BEGINNING TO CLIMB WELL. PT IS BEGINNING TO SETTLE SOME. WAS LISTENING TO VERBAL REDIRECT BUT SHORT DURATION. TUBE FEEDINGS HAVE BEEN INITIATED VIA DOBHOFF, TOLERATING WELL. TPN HAS BEEN DISCONTINUED.
[2024-12-18] MEDS ORDERED: Vancomycin HCL 1,750 MG in NS 500 ML IV SCH (16:00)
[2024-12-18] MEDS ORDERED: Vancomycin HCL 1,500 MG in NS 250 ML IV SCH (17:00)
--- NOTE | 2024-12-18 17:59 | NUR ---
NIKOS CONTINUED TO BE VERY RESTLESS, PULLING AT THE HFNC, REMOVED THE DOBHOFF BY SEVERAL CM'S. FEEDING IMMEDIATELY STOPPED, DOBHOFF REPLACED. PT AGITATED AND RESTLESS, PRECEDEX INCREASED TO 1MCG/KG/HR.
--- NOTE | 2024-12-18 21:45 | NUR ---
ASSUMPTION OF CARE PT LYING IN BED SQUIRMING, EYES CLOSED, MOANING. SEDATED ON PRECEDEX 0.6. SINUS RHYTHM WITH RATE 60-80, NO PAC'S AND STABLE BP. >92% SATURATION ON 50L/MIN AND 39% FIO2. 2ND DOBHOFF IN PLACE WITH TUBE FEED AT 35. WILL INCREASE AT MIDNIGHT IF TOLERATING. NO SIGNS OF CHEST PAIN/PRESSURE, SOB, N/V, AB PAIN. KOVACS IN PLACE.
[2024-12-19] VITALS (40 sets, daily range): BP systolic 84–163; BP diastolic 59–117
[2024-12-19 04:09] LABS: Hematocrit 41.4 % (33.0-51.0); Hemoglobin 13.3 g/dL (11.5-16.0); Mean Corpuscular HGB 29.6 pg (26.0-34.0); Mean Corpuscular HGB Conc 32.1 g/dL (31.5-36.5); Mean Corpuscular Volume 92 fL (80-100); Mean Platelet Volume 12.8 fL (9.1-12.4); NRBC ABSOLUTE 0.02 K/mm3 (0.00-0.02); NRBC Auto 0.1 /100 WBC (0.0-0.2); Platelet Count 196 K/mm3 (150-400); RDW Coefficient Variation 14.7 % (11.7-14.2); RDW Standard Deviation 49.2 fL (35.1-46.3); Red Blood Cell Count 4.49 M/mm3 (3.80-5.20); White Blood Cell Count 29.22 K/mm3 (4.00-11.30)
[2024-12-19 04:29] LABS: Albumin, Blood 2.2 g/dL (3.4-5.0); Albumin/Globulin Ratio 0.8 (0.8-1.8); Bilirubin, Total 1.2 mg/dL (0.1-1.0); Bun/Creatinine Ratio 67.9 (12.0-20.0); Calcium, Blood 8.5 mg/dL (8.5-10.1); Creatinine, Blood 0.85 mg/dL (0.40-1.00); Globulin, Blood 2.9 g/dL (2.2-4.0); Magnesium, Blood 2.4 mg/dL (1.6-2.4); Phosphorus, Blood 2.4 mg/dL (2.5-4.9); Potassium, Blood 4.4 mmol/L (3.5-5.5); Total Protein, Blood 5.1 g/dL (6.4-8.2)
[2024-12-19 05:01] LABS: BAND PERCENT MAN 2 % (0-8); BASOPHILS PERCENT MAN 0 % (0-2); EOSINOPHILS PERCENT MAN 0 % (0-6); LYMPHOCYTES ABSOLUTE MAN 1.16 K/mm3 (0.84-5.20); LYMPHOCYTES PERCENT MAN 4 % (21-46); METAMYELOCYTE ABSOLUTE MAN 0.87 K/mm3 (0.00-0.00); METAMYELOCYTE PERCENT MAN 3 % (0-0); MONOCYTES ABSOLUTE MAN 1.46 K/mm3 (0.16-1.47); MONOCYTES PERCENT MAN 5 % (4-13); MYELOCYTE ABSOLUTE MAN 0.87 K/mm3 (0.00-0.00); MYELOCYTE PERCENT MAN 3 % (0-0); NEUTROPHILS ABSOLUTE MAN 24.83 K/mm3 (1.96-9.15); SEG NEUTROPHILS PERCENT MAN 83 % (41-73); TOTAL CELLS COUNTED 100
--- NOTE | 2024-12-19 07:37 | NUR ---
SHIFT SUMMARY PT LYING IN BED SQUIRMING AN GROANING WHEN AWAKE, WHICH HAPPENS TO VOICE. PRECEDEX AT 0.6. PT MOVES ALL EXTREMITIES AND CRIES IN PAIN WITH MOVEMENT OF RIGHT ARM IN PARTICULAR. NO SIGN OF PAIN OBSERVED AND PT WOULD NOT ANSWER DIRECTED QUESTIONS YESTERDAY WHEN SHE MAINTAINED GREATER MENTAL CLARITY AND SOME ABILITY TO ANSWER QUESTIONS VERBALLY AND NON-VERBALLY. PT TEMPORAL TEMPERATURE READINGS DECREASED SINCE START OF SHIFT, FINISHING AT 96.4. SHOULD BE FOLLOWED AND REASSESSED. HR SINUS KELLY IN THE MID TO UPPER 50'S WITH STABLE BP'S ALL SHIFT. PT LUNGS SOUND CLEAR EVER WITH SOME COARSENESS AUDIBLE IN RIGHT LUNG. PT DID NOT COUGH MUCH THIS SHIFT COMPARED TO LAST, POSSIBLY DUE TO SEDATION. CHEST PHYSIO, STARTED YESTERDAY, MAY HAVE HELPED TO CLEAR AIRWAY WELL. SPUTUM SAMPLE IS STILL DESIRED. AIRVO WAS UTILIZED ALL EVENING AT 40L/MIN AND 50 50% FIO2 PRODUCING SATURATIONS >92%. TUBE FEEDS AT 45ML/HR WITH GOAL OF 50. NO BM DURING SHIFT. NO VOMITING OR SIGNS OF NAUSEA. KOVACS PATENT AND DRAINING LESS URINE (500 FOR SHIFT) THAT IS NOTICEABLY DARKER IN COLOR THAN PREVIOUS DAYS/NIGHTS. PT HAS CALL LIGHT NEARBY AND REPORT WAS GIVEN TO ONCOMING NURSE.
[2024-12-19] MEDS ORDERED: PredniSONE 20 MG Tab PO SCH (09:00)
[2024-12-19 15:30] LABS: Vancomycin, Trough 15.8 ug/mL (5.0-10.0)
--- NOTE | 2024-12-19 18:31 | NUR ---
NIKOS IS UP IN THE RECLINER, SHE HAS BEEN UP SINCE EARLY AFTERNOON. SHE IS DOWN TO 4L/NC, HER SATS HAVE BEEN >95% WHILE UP IN THE CHAIR. SHE IS OFF OF PRECEDEX SINCE EARLY THIS AM, VANCOMYCIN AND FLAGYL CONTINUE SCHEDULED. SHE ASKED FOR WATER THIS MORNING. SHE WON'T OPEN HER EYES, SHE CONTINUES TO TRY TO PULL OFF THE OXYGEN. TUBE FEEDING CONTINUES AT GOAL RATE.
[2024-12-20] VITALS (34 sets, daily range): BP systolic 127–163; BP diastolic 60–107
[2024-12-20] MEDS ORDERED: Peg 400/Hypromellose/Glycerin 15 DROP/ML BTL BOTHEYES PRN (02:40)
[2024-12-20 03:39] LABS: Hemoglobin 14.2 g/dL (11.5-16.0); Mean Corpuscular HGB 29.6 pg (26.0-34.0); Mean Corpuscular HGB Conc 32.3 g/dL (31.5-36.5); Mean Corpuscular Volume 92 fL (80-100); Mean Platelet Volume 12.3 fL (9.1-12.4); Platelet Count 243 K/mm3 (150-400); RDW Coefficient Variation 14.8 % (11.7-14.2); RDW Standard Deviation 49.3 fL (35.1-46.3); Red Blood Cell Count 4.79 M/mm3 (3.80-5.20); White Blood Cell Count 35.09 K/mm3 (4.00-11.30)
[2024-12-20 04:05] LABS: Albumin, Blood 2.3 g/dL (3.4-5.0); Albumin/Globulin Ratio 0.8 (0.8-1.8); Bilirubin, Total 1.1 mg/dL (0.1-1.0); Bun/Creatinine Ratio 67.9 (12.0-20.0); Calcium, Blood 8.3 mg/dL (8.5-10.1); Creatinine, Blood 0.78 mg/dL (0.40-1.00); Globulin, Blood 2.9 g/dL (2.2-4.0); Magnesium, Blood 2.5 mg/dL (1.6-2.4); Phosphorus, Blood 1.2 mg/dL (2.5-4.9); Potassium, Blood 4.3 mmol/L (3.5-5.5); Total Protein, Blood 5.2 g/dL (6.4-8.2)
[2024-12-20] MEDS ORDERED: Sodium Phosphate 15 MM in Dextrose 5% 500 ML IV STA (06:41)
[2024-12-20] MEDS ORDERED: Dextrose 5% 1,000 ML IV SCH ×2 (07:00→08:00)
[2024-12-20] MEDS ORDERED: Potassium Phosphate Dibasic 15 MM in Dextrose 5% 250 ML IV ONE (07:30)
--- NOTE | 2024-12-20 08:00 | NUR ---
[place] of care: Does not open eyes or speak. Intermittently nods yes to questions. Moves upper extremities purposefully & lower extremities to painful stimuli. Does not follow commands for me. OOB to chair with lift. In NSR in the 60s. SBP 150-160. On 6L NC. Osorio cath patent & secure draining clear yellow urine. Bowel movement today. TF infusing at goal via dobhoff. PIV & powerglide in place. D5 gtt started per orders. K phos replacement infusing. Discussed plan of care with Dr. Armstrong during her rounds. Will continue to monitor.
--- NOTE | 2024-12-20 08:10 | NUR ---
SHIFT SUMMARY PT LYING IN BED SLEEPING. AWAKES TO VOICE BUT IS NO VERBAL. WILL ANSWER SOME QUESTIONS AND FOLLOW SOME COMMANDS. PT MOVES ALL EXTREMITIES AND CRIES IN PAIN WITH MOVEMENT OF RIGHT ARM IN PARTICULAR. HR SINUS IN THE MID TO UPPER 60'S WITH STABLE BP'S ALL SHIFT. PT LUNGS SOUND CLEAR EVER WITH SOME COARSENESS AUDIBLE IN RIGHT LUNG. PT STILL HAS WEAK COUGH. SPUTUM SAMPLE IS STILL DESIRED. PT ON NC 4-6L PRODUCING SATURATIONS >92%. TUBE FEEDS AT GOAL OF 50. NO BM DURING SHIFT. NO VOMITING OR SIGNS OF NAUSEA. KOVACS PATENT AND DRAINING. 700 OUT FOR SHIFT. PHOSPHOROUS LOW THIS MORNING AT 1.2. PROVIDER WAS CALLED AND REPLACEMENT ORDERED. PT HAS CALL LIGHT NEARBY AND REPORT WAS GIVEN TO ONCOMING NURSE.
[2024-12-20] MEDS ORDERED: Sodium Phosphate Mono/Dibasic 250 MG Tab PO SCH (09:00)
[2024-12-20 12:31] LABS: Albumin, Blood 2.3 g/dL (3.4-5.0); Anion Gap 5 mmol/L (3-11); Blood Urea Nitrogen 48 mg/dL (8-24); Bun/Creatinine Ratio 65.3 (12.0-20.0); CO2, Blood 30 mmol/L (21-32); Calcium, Blood 7.8 mg/dL (8.5-10.1); Chloride, Blood 119 mmol/L (98-108); Creatinine, Blood 0.74 mg/dL (0.40-1.00); Glomerular Filtration Rate 81 (60-); Glucose, Blood 190 mg/dL (70-99); Phosphorus, Blood 2.3 mg/dL (2.5-4.9); Potassium, Blood 4.6 mmol/L (3.5-5.5); Sodium, Blood 149 mmol/L (136-145)
--- NOTE | 2024-12-20 18:30 | NUR ---
End of shift summary: Continues with altered mental status. Intermittently open eyes to pain, localizes with bilat upper extremities, withdraws to pain in bilat lower extremities, non-verbal except for to state "no" when stimulating her for patient care such as repositioning. OOB in chair with lift for most of the day. In NSR & SBPs between 150-160. Weaned from 6L NC to 4L NC with oxygen saturations 92-93% for the most part. Osorio cath in place with 800cc yellow output. Having liquid diarrhea -- rectal management tube placed. TF infusing through dobhoff at goal. D5 at 75cc/hr. Phos replaced. Orders for PCU -- will await transfer & continue to monitor.
--- NOTE | 2024-12-20 19:53 | NUR ---
ASSUMPTION OF CARE PT LYING IN BED SLEEPING. OPENS HER EYES WITH STRONG URGING. FOLLOWS SOME COMMANDS AND USES THE WORD "NO" SINUS RHYTHM WITH RATE 60-80, NO PAC'S AND STABLE BP. >92% SATURATION ON 4L NC. 2ND DOBHOFF IN PLACE WITH TUBE FEED AT 50. PT DENIES CHEST PAIN/PRESSURE, SOB, N/V, AB PAIN. KOVACS IN PLACE. RECTAL TUBE IN PLACE BUT LEAKING.
[2024-12-21] VITALS (8 sets, daily range): BP systolic 110–148; BP diastolic 53–70
[2024-12-21 03:53] LABS: Hematocrit 42.1 % (33.0-51.0); Hemoglobin 13.3 g/dL (11.5-16.0); Mean Corpuscular HGB 29.4 pg (26.0-34.0); Mean Corpuscular HGB Conc 31.6 g/dL (31.5-36.5); Mean Corpuscular Volume 93 fL (80-100); NRBC ABSOLUTE 0.02 K/mm3 (0.00-0.02); NRBC Auto 0.1 /100 WBC (0.0-0.2); Platelet Count 203 K/mm3 (150-400); RDW Coefficient Variation 15.1 % (11.7-14.2); RDW Standard Deviation 51.4 fL (35.1-46.3); Red Blood Cell Count 4.53 M/mm3 (3.80-5.20); White Blood Cell Count 26.83 K/mm3 (4.00-11.30)
[2024-12-21 03:54] LABS: Mean Platelet Volume 13.2 fL (9.1-12.4)
[2024-12-21 04:09] LABS: Albumin, Blood 1.9 g/dL (3.4-5.0); Albumin/Globulin Ratio 0.7 (0.8-1.8); Bilirubin, Total 0.9 mg/dL (0.1-1.0); Bun/Creatinine Ratio 68.1 (12.0-20.0); Calcium, Blood 7.5 mg/dL (8.5-10.1); Creatinine, Blood 0.66 mg/dL (0.40-1.00); Globulin, Blood 2.9 g/dL (2.2-4.0); Magnesium, Blood 2.4 mg/dL (1.6-2.4); Phosphorus, Blood 2.7 mg/dL (2.5-4.9); Potassium, Blood 4.9 mmol/L (3.5-5.5); Total Protein, Blood 4.8 g/dL (6.4-8.2)
[2024-12-21 04:19] LABS: BAND PERCENT MAN 3 % (0-8); BASOPHILS PERCENT MAN 0 % (0-2); EOSINOPHILS PERCENT MAN 0 % (0-6); LYMPHOCYTES PERCENT MAN 6 % (21-46); METAMYELOCYTE PERCENT MAN 3 % (0-0); MONOCYTES PERCENT MAN 3 % (4-13); MYELOCYTE ABSOLUTE MAN 0.53 K/mm3 (0.00-0.00); MYELOCYTE PERCENT MAN 2 % (0-0); NEUTROPHILS ABSOLUTE MAN 23.07 K/mm3 (1.96-9.15); SEG NEUTROPHILS PERCENT MAN 83 % (41-73); TOTAL CELLS COUNTED 100
--- NOTE | 2024-12-21 06:15 | NUR ---
SHIFT SUMMARY PT LYING IN BED SLEEPING. AWAKES TO VOICE BUT IS NO VERBAL. WILL ANSWER SOME QUESTIONS AND FOLLOW SOME COMMANDS. PT MOVES ALL EXTREMITIES AND MOANS IN PAIN WITH MOVEMENT OF RIGHT ARM IN PARTICULAR. HR SINUS IN THE MID TO UPPER 60'S WITH STABLE BP'S ALL SHIFT. PT LUNGS SOUND CLEAR WITH EXP RHONCHI. . PT STILL HAS WEAK COUGH. SPUTUM SAMPLE SENT. PT ON NC 4L PRODUCING SATURATIONS >92%. TUBE FEEDS AT GOAL OF 50. RECTAL TUBE IS PATENT BUT LEAKING. NO VOMITING OR SIGNS OF NAUSEA. KOVACS PATENT AND DRAINING. 820 OUT FOR SHIFT. ELECTROLYTE LABS HAVE STABILISED OR ARE ON TRACK TO- NA 146, PH 2.7, K 4.6, PT HAS CALL LIGHT NEARBY AND REPORT WILL BE GIVEN TO ONCOMING NURSE.
--- NOTE | 2024-12-21 07:25 | NUR ---
ASSUMED CARE OF PATIENT AT APPROXIMATELY 0700. BEDSIDE REPORT RECEIVED FROM ARGELIA SILVER. PT ROUSES TO VERBAL STIMULI. SHE STATES SHE IS AT HOME BUT IS EASILY REDIRECTABLE. CONTINUOUS CARDIAC MONITORING IN PLACE SHOWS SR, BP STABLE. ON 4LPM O2 VIA NC c O2 SATURATION > 92%. KOVACS AND RECTAL TUBE IN PLACE. SEE SHIFT ASSESSMENT FOR FULL DETAILS.
[2024-12-21] MEDS ORDERED: Furosemide 10 MG / ML 2ML Vial IV ONE (08:00)
[2024-12-21 15:25] LABS: Vancomycin, Trough 14.7 ug/mL (5.0-10.0)
--- NOTE | 2024-12-21 17:02 | NUR ---
SHIFT SUMMARY PT REMAINS ORIENTED TO PERSON/SELF ONLY. PT EARLIER THOUGHT THAT SHE WAS AT HOME BUT NOW REPEATS "I WANT TO GO HOME" AND WHEN ASKED IF SHE KNOWS WHERE SHE IS SHE SAYS "MMMM" BUT CANNOT COMPLETE THOUGHT. FREQUENT WORD SEARCHING. ABLE TO FOLLOW COMMANDS, MAKE PURPOSEFUL MOVEMENTS, AND MAKE NEEDS KNOWN. AFEBRILE AND DENIES PAIN. CONTINUOUS CARDIAC MONITORING IN PLACE SHOWS SB-SR c HR IN 50'S-60'S. BP STABLE c MAP > 65. DENIES CP/PRESSURE AND SOB. ON 4LPM O2 VIA NC c SATURATIONS > 92%. LS CLEAR, STILL HAS PRODUCTIVE COUGH. PIVOT 1.5 INFUSING AT GOAL RATE OF 50 mL/HR c 200 mL FLUSHES Q4H. RECTAL TUBE IN PLACE c OCCASIONAL LEAKING. KOVACS PATENT AND DRAINING TO GRAVITY. WILL CONTINUE TO MONITOR AND REPORT TO ONCOMING RN.
[2024-12-22] VITALS (9 sets, daily range): BP systolic 91–112; BP diastolic 45–72
[2024-12-22 05:34] LABS: Hemoglobin 11.6 g/dL (11.5-16.0); Mean Corpuscular HGB 28.9 pg (26.0-34.0); Mean Corpuscular HGB Conc 31.4 g/dL (31.5-36.5); Mean Corpuscular Volume 92 fL (80-100); Mean Platelet Volume 12.4 fL (9.1-12.4); Platelet Count 189 K/mm3 (150-400); RDW Coefficient Variation 14.9 % (11.7-14.2); RDW Standard Deviation 49.8 fL (35.1-46.3); Red Blood Cell Count 4.02 M/mm3 (3.80-5.20); White Blood Cell Count 21.27 K/mm3 (4.00-11.30)
[2024-12-22 05:59] LABS: Albumin, Blood 1.7 g/dL (3.4-5.0); Albumin/Globulin Ratio 0.7 (0.8-1.8); Bilirubin, Total 0.7 mg/dL (0.1-1.0); Bun/Creatinine Ratio 57.7 (12.0-20.0); Calcium, Blood 7.3 mg/dL (8.5-10.1); Creatinine, Blood 0.75 mg/dL (0.40-1.00); Globulin, Blood 2.5 g/dL (2.2-4.0); Magnesium, Blood 2.4 mg/dL (1.6-2.4); Phosphorus, Blood 3.3 mg/dL (2.5-4.9); Potassium, Blood 3.4 mmol/L (3.5-5.5); Total Protein, Blood 4.2 g/dL (6.4-8.2)
--- NOTE | 2024-12-22 06:48 | NUR ---
END OF SHIFT: THIS PT HAD NO ACUTE EVENTS OVERNIGHT AND HAS BEEN SLEEPING WELL. CURRENTLY RESTING IN BED AND AWAITING A TRANSFER OUT OF THE ICU.
[2024-12-22] MEDS ORDERED: Potassium Chloride 20 MEQ TabCR PO ONE (07:40)
[2024-12-22] MEDS ORDERED: Potassium Chloride 20 MEQ/15 ML UDC PO ONE (08:05)
[2024-12-22] MEDS ORDERED: Enoxaparin 100 MG/ML 1ML SYR SC SCH (09:00)
--- NOTE | 2024-12-22 11:14 | NUR ---
AM NOTE... ASSUMED CARE OF PT AT 0700, PT IS A&Ox4. PT IS IN SB IN THE 40'S-50'S PT IS NOT SYMPTOMATIC, BP IS SOFT WITH SBPs IN THE 90'S BUT MAPS>65. L/S RHONCHI IN THE UPPER LOBES THAT CLEAR WITH COUGHING, DIM IN THE LOWER LOBES MORE SO ON THE RIGHT THAN THE LEFT FINE CRACKLES NOTED IN THE BILATERAL BASES. PT IS ON 4L NC WITH O2 SATS>90% THIS WAS TITRATED DOWN TO 3L NC. PT WAS SEEN BY SPEECH THIS AM, PT IS NOW REGULAR DIET WITH THIN LIQUIDS, TUBE FEEDS STOPPED. PT WAS GIVEN A BATH AND IS CURRENTLY UP IN THE RECLINER CHAIR.
[2024-12-22] MEDS ORDERED: Furosemide 10 MG / ML 2ML Vial IV SCH (15:00)
[2024-12-22] MEDS ORDERED: Insulin Human Lispro 100 Units/ML 3ML Syringe SC SCH (16:30)
--- NOTE | 2024-12-22 17:55 | NUR ---
SHIFT SUMMARY... NO ACUTE NEGATIVE CHANGES NOTED THIS SHIFT. PT HAS BEEN UP IN THE CHAIR MOST OF THE DAY. SHE WORKED WITH PT/OT AND STOOD SEVERAL TIMES FROM THE RECLINER. PT WAS ABLE TO EAT 85% OF HER LUNCH AND IS CURRENTLY WORKING ON HER DINNER. PT IS REQUESTING THE DOBHOFF TO BE REMOVED. PT'S HR HAS BEEN IN THE 50'S-60'S T/O THIS SHIFT SB/SR, BP HAS BEEN SOFT BUT STABLE WITH SBPs 90'S-100'S AND MAPS>65. PT HAS NOT HAD A BM SINCE THE RECTAL TUBE WAS REMOVED. 750MLS OF DARK YELLOW URINE DRAINED FROM THE KOVACS THIS SHIFT. PT CONTINUES TO BE ON 3L NC WITH O2 SATS 89-94%.
--- NOTE | 2024-12-22 20:00 | NUR ---
ASSUMED CARE OF PT AT 1900. REPORT RECEIVED AT BEDSIDE. PT PRESENTS IN BEDSIDE CHAIR. ALERT AND ORIENTED PLEASANT AND COOPERATIVE WITH CARE AND ASSESSMENT. NO COMPLAINTS OF CHEST PAIN OR PRESSURE. NO COMPLAINTS OF DYSPNEA. DISCUSSED PLAN TO HAVE PT RETURN TO BED FOR THE NIGHT. PT VOICES AGREEMENT. WILL REVIEW CHART AND PLAN OF CARE FOR THIS PT.
[2024-12-23] VITALS (44 sets, daily range): BP systolic 57–117; BP diastolic 35–68
[2024-12-23 05:01] LABS: Hematocrit 32.8 % (33.0-51.0); Hemoglobin 10.5 g/dL (11.5-16.0); Mean Corpuscular HGB 29.6 pg (26.0-34.0); Mean Corpuscular Volume 92 fL (80-100); Platelet Count 201 K/mm3 (150-400); RDW Coefficient Variation 15.1 % (11.7-14.2); RDW Standard Deviation 50.4 fL (35.1-46.3); Red Blood Cell Count 3.55 M/mm3 (3.80-5.20)
[2024-12-23 05:31] LABS: Albumin, Blood 1.7 g/dL (3.4-5.0); Anion Gap 5 mmol/L (3-11); Blood Urea Nitrogen 48 mg/dL (8-24); Bun/Creatinine Ratio 54.6 (12.0-20.0); CO2, Blood 28 mmol/L (21-32); Calcium, Blood 7.2 mg/dL (8.5-10.1); Chloride, Blood 112 mmol/L (98-108); Creatinine, Blood 0.88 mg/dL (0.40-1.00); Glomerular Filtration Rate 66 (60-); Glucose, Blood 104 mg/dL (70-99); Magnesium, Blood 2.9 mg/dL (1.6-2.4); Phosphorus, Blood 3.6 mg/dL (2.5-4.9); Potassium, Blood 4.2 mmol/L (3.5-5.5); Sodium, Blood 141 mmol/L (136-145)
--- NOTE | 2024-12-23 06:39 | NUR ---
PT HAS BEEN ABLE TO REST SOME THIS NIGHT. AWAKENS EASILY WHEN STAFF IS IN ROOM. REMAINS VERY PLEASANT AND COOPERATIVE. DID CHANGE POWERGLIDE DRESSING THIS AM. PT TOLERATES WELL. 2 L/M O2 MAINTAINS SATURATIONS > 90 PERCENT. WILL CONTINUE TO MONITOR PT, AND WILL REPORT OFF TO ONCOMING RN.
[2024-12-23] MEDS ORDERED: Lactated Ringer's 1,000 ML IV ONE ×2 (08:10→09:09)
--- NOTE | 2024-12-23 08:43 | NUR ---
HYPOTENSION AND ABD PAIN: THIS MORNING, PATIENT REPORTING LLQ ABDOMINAL PAIN. PROVIDED WITH K-PAD AND ASSISTED WITH REPOSITIONING. PATIENT REPORTS THAT IT IS DULL AND 10/10. PATIENT REPORTS THAT SHE DOES NOT TAKE PAIN MEDICATION AT HOME. PATIENT'S BLOOD PRESSURES ARE LOW THIS MORNING WITH MAPS IN THE 50S. SBP IN THE 60S-70S. DR. SALINAS AWARE AND AT BEDSIDE. AT THE TIME OF THIS NOTE, LR FLUID BOLUS INFUSING.
[2024-12-23] MEDS ORDERED: Lactated Ringer's 1,000 ML IV SCH ×2 (09:15→11:15)
[2024-12-23 09:27] LABS: Hematocrit 25.5 % (33.0-51.0)
[2024-12-23] MEDS ORDERED: NS 250 ML IV ONE (12:16)
[2024-12-23] MEDS ORDERED: Heparin Sodium 1000 Units/ML 10ML MDV ONE ×2 (12:16→13:38)
[2024-12-23] MEDS ORDERED: NS 2,000 ML IV ONE (12:16)
[2024-12-23] MEDS ORDERED: Phenylephrine HCl 100 MCG/ML-NS 10MLSYR (1MG/10ML) ONE (12:27)
[2024-12-23] MEDS ORDERED: Ondansetron HCl 2 MG / ML 2ML Vial ONE ×2 (12:27→13:44)
[2024-12-23] MEDS ORDERED: NS 1,000 ML IV ONE (12:53)
[2024-12-23] MEDS ORDERED: Norepinephrine Bitartrate 250 ML IV ONE (13:31)
[2024-12-23] MEDS ORDERED: NS 500 ML IV ONE (13:38)
[2024-12-23] MEDS ORDERED: Calcium Chloride 10% 2,000 MG in NS 100 ML IV ONE (14:30)
[2024-12-23] MEDS ORDERED: Ondansetron HCl 2 MG / ML 2ML Vial IV PRN (15:05)
[2024-12-23] MEDS ORDERED: FentaNYL Citrate 50 MCG/ML 2 ML Injection IV PRN (15:20)
[2024-12-23] MEDS ORDERED: Vasopressin 20 UNITS in NS 100 ML IV SCH (15:20)
[2024-12-23] MEDS ORDERED: Metoclopramide HCl 5MG / ML 2ML Vial IV ONE (15:20)
--- NOTE | 2024-12-23 15:46 | NUR ---
Call placed to Dr Lange to notify provider that pt is reporting nausea. Noted that pt has already received two doses of 4 mg zofran in [facility]. Provider ordered one time dose of reglan. Noted that pt also reports severe abd pain, unchanged from earlier. Provider ordered 25 mcg fentanyl IV. Plan to medicate pain when pt is no longer nauseous. Shortly after medicated for nausea, noticed that pt's breathing pattern and mentation had changed. Increased rate of blood, titrated vasopressors to map and placed call to Dr Lange. Provider will present at bedside. No family currently at bedside. Placed call to Ta Oliva and William to update, who are on their way in to see pt. Update given to primary RN, Zo.
[2024-12-23 16:13] LABS: Base Excess Venous -16.8 mmol/L; Bicarbonate Venous 10.6 mmol/L (24.0-30.0); PCO2 Venous 71.7 mmHg (38-42); pH Blood Venous 6.94 (7.34-7.37)
--- NOTE | 2024-12-23 16:15 | NUR ---
PATIENT STATUS THROUGHOUT THE SHIFT AND TIME OF : PATIENT EXPERIENCED HIGH LEVELS OF PAIN THIS MORNING IN ADDITION TO LOW BLOOD PRESSURES (SEE NURSE'S NOTE). DR. SALINAS AT BEDSIDE AND NEW ORDERS PLACED. PATIENT RECEIVED A LITER BOLUS OF LR AND LEVOPHED WAS STARTED. PATIENT WENT TO IMAGING FOR A CHEST/ABD/PELVIC CT SCAN. THE RADIOLOGISTS NOTIFIED DR. SALINAS OF RETROPERITONEAL BLEEDING. NEW ORDERS FOR EMERGENT PRBCS - [address] ALARCON CONTACTED. FIRST UNIT OF BLOOD STARTED. PATIENT BACK TO CT FOR A CTA OF THE ABDOMEN. PATIENT'S POA NICOLE AT BEDSIDE. HE WAS ABLE TO DISCUSS PATIENT OPTIONS AND SIGN CONSENT FOR CENTRAL LINE, BLOOD TRANSFUSION AND IR PROCEDURE. PATIENT TO THE MISSILE FACILITIES REPAIRER AROUND 12:10. PATIENT AT THIS TIME CONTINUED TO BE ALERT, ABLE TO MAKE HER NEEDS KNOWN AND FOLLOW DIRECTIONS. LEVOPHED NEEDS CONTINUED TO INCREASE. PATIENT IN THE MISSILE FACILITIES REPAIRER UNTIL AROUND 1420. SECOND UNIT OF PRBC STARTED AT 1352. PATIENT RECEIVED AN ADDITIONAL FLUID BOLUS IN THE MISSILE FACILITIES REPAIRER. PATIENT BACK TO ROOM. UPON COMPLETION OF 2ND UNIT, THIRD UNIT (CROSSMATCHED) STARTED. PATIENT CONTINUED TO REQUIRE 20 MCG/MIN OF LEVOPHED TO MAINTAIN MAPS IN THE LOW 60S. DISCUSSED WITH DR. SALINAS. PATIENT CONTINUED TO RECEIVE LR AT 100 MLS/HR AND NEW ORDERS FOR CALCIUM CHLORIDE (STARTED AT 14:50). NEW ORDERS FOR VASOPRESSION NEEDED. PATIENT'S POA LEFT THE BEDSIDE AFTER CHATTING WITH THE PATIENT. PATIENT REPORTED FATIGUE AND CONTINUED TO REPORT THAT SHE WAS EXPERIENCING THE SAME LEVELS OF PAIN. PATIENT ALSO REPORTED NAUSEA. SEE NURSE'S NOTE RE: ANTIEMETIC AND PATIENT'S CHANGE IN CONDITION. DR. SALINAS AT BEDSIDE. PATIENT'S FRIENDS/POA NOTED OF CHANGE IN CONDITION. THEY AND MACHINE PAN GREASER AT BEDSIDE. PATIENT RECEIVED A BLESSING BEFORE SHE PASSED. PATIENT HAD APNEIC BREATHING. RAPID DECREASE IN HR TO THE 20-30S. PATIENT PASSED AT 16:15. FRIENDS AT BEDSIDE AND ABLE TO SAY THEIR GOODBYES. DR. SALINAS AND DR. KUHN AWARE OF TIME OF . FINAL COMPLETED.
--- NOTE | 2024-12-23 16:25 | NUR ---
Upon being contacted by ICU Cost Engineer Lashell, and told that the patient is transitioning. I waited for a moment to come near the patient (because the clinical team was at work doing everything possible for the patient), and I said a last rights type of prayers along with prayers for her peace and for God's leading and guidance into His presence. Patient was taking a few remaining breaths as family arrived, I handed the care over to Tapper Handbelle Bryant.
--- NOTE | 2024-12-23 16:33 | NUR ---
BLOCK CHARTING: LATE ENTRY: 12:10-1420 PATIENT IN WHOLESALE AND RETAIL MERCHANT FOR PROCEDURE DURING THIS TIME. LEVOPHED TITRATED TO MAINTAIN MAPS >65. BY THE END OF THE PROCEDURE, LEVOPHED WAS AT 20 MCG/MIN.
--- NOTE | 2024-12-23 16:37 | NUR ---
"Spiritual Care | EOL Pt. 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 When the nurses called TOD, a blessing was given for the Pt. at bedside, and prayer for the family is given. Pts. adopted son (POA), his spouse and daughter are at bedside. After a time of approriate grieving EOL Education is addressed. The Pt. has already made arrangements at [facility] home in [place]. Family will notify nurse when they are leaving. No other family is expected. Family verbalized gratitude for the spiritual care support."
--- NOTE | 2024-12-23 19:04 | NUR ---
LA GRADER OPERATOR: MEI'S REPRESENTATIVE FRANCOIS CAME TO GET THE PATIENT AT 1850.
== END 2024-12-23 16:15 | DRG 853 ==
LOC: ER 11:34 → ICUE 13:43
PROVIDERS: Emergency Medicine; Internal Medicine; Internal Medicine Critical Care Medicine; Student in an Organized Health Care Education/Training Program; ADMIT Hospitalist
PROC: 5A09557 Assistance with Respiratory Ventilation, Greater than 96 Consecutive Hours, Continuous Positive Airway Pressure (ICD-10-PCS; 2024-12-14)
PROC: 0T9B70Z Drainage of Bladder with Drainage Device, Via Natural or Artificial Opening (ICD-10-PCS; 2024-12-14)
PROC: 5A2204Z Restoration of Cardiac Rhythm, Single (ICD-10-PCS; 2024-12-15)
PROC: 3E033XZ Introduction of Vasopressor into Peripheral Vein, Percutaneous Approach (ICD-10-PCS; 2024-12-15)
PROC: 30233J1 Transfusion of Nonautologous Serum Albumin into Peripheral Vein, Percutaneous Approach (ICD-10-PCS; 2024-12-15)
PROC: 3E03329 Introduction of Other Anti-infective into Peripheral Vein, Percutaneous Approach (ICD-10-PCS; 2024-12-15)
PROC: 8E0ZXY6 Isolation (ICD-10-PCS; 2024-12-15)
PROC: 5A0955A Assistance with Respiratory Ventilation, Greater than 96 Consecutive Hours, High Flow/Velocity Cannula (ICD-10-PCS; 2024-12-16)
PROC: 3E0336Z Introduction of Nutritional Substance into Peripheral Vein, Percutaneous Approach (ICD-10-PCS; 2024-12-16)
PROC: 0DH67UZ Insertion of Feeding Device into Stomach, Via Natural or Artificial Opening (ICD-10-PCS; 2024-12-18)
PROC: 04VF3DZ Restriction of Left Internal Iliac Artery with Intraluminal Device, Percutaneous Approach (ICD-10-PCS; principal; 2024-12-23)
PROC: B51G1ZZ Fluoroscopy of Left Pelvic (Iliac) Veins using Low Osmolar Contrast (ICD-10-PCS; 2024-12-23)
PROC: 30233N1 Transfusion of Nonautologous Red Blood Cells into Peripheral Vein, Percutaneous Approach (ICD-10-PCS; 2024-12-23)
DX: A41.89 Other specified sepsis (principal); I50.21 Acute systolic (congestive) heart failure; J96.01 Acute respiratory failure with hypoxia; K68.3 Retroperitoneal hematoma; J15.9 Unspecified bacterial pneumonia; J85.1 Abscess of lung with pneumonia; J10.08 Influenza due to other identified influenza virus with other specified pneumonia; J44.1 Chronic obstructive pulmonary disease with (acute) exacerbation; E87.0 Hyperosmolality and hypernatremia; D62 Acute posthemorrhagic anemia; J44.0 Chronic obstructive pulmonary disease with (acute) lower respiratory infection; I13.0 Hypertensive heart and chronic kidney disease with heart failure and stage 1 through stage 4 chronic kidney disease, or unspecified chronic kidney disease; N17.9 Acute kidney failure, unspecified; I42.0 Dilated cardiomyopathy; Z66 Do not resuscitate; Z51.5 Encounter for palliative care; I48.0 Paroxysmal atrial fibrillation; R65.20 Severe sepsis without septic shock; J43.9 Emphysema, unspecified; N18.9 Chronic kidney disease, unspecified; E88.09 Other disorders of plasma-protein metabolism, not elsewhere classified; I49.3 Ventricular premature depolarization; E87.6 Hypokalemia; R57.8 Other shock; E89.0 Postprocedural hypothyroidism; Z88.0 Allergy status to penicillin; Z88.8 Allergy status to other drugs, medicaments and biological substances; Z79.899 Other long term (current) drug therapy; Z85.850 Personal history of malignant neoplasm of thyroid; Z98.890 Other specified postprocedural states; Z87.891 Personal history of nicotine dependence; Z79.4 Long term (current) use of insulin; Z78.1 Physical restraint status
CPT/HCPCS: 0202U; 0241U; 36415; 36430; 51702; 71045; 71250; 71260; 74174; 74176; 76937; 80048; 80053; 80069; 80202; 81001; 82330; 82803; 82947; 83036; 83605; 83735; 83880; 84100; 84295; 84478; 84484; 85014; 85018; 85025; 85027; 86850; 86900; 86901; 86923; 87070; 87086; 87205; 92610; 92960; 93005; 93010; 93306; 94640; 94660; 94664; 94667; 94668; 94762; 96361; 96374; 96375; 97110; 97161; 97166; 97530; 97535; 99285-25; A9270; C1751; C1760; C1769; C1887; C1889; C1894; J0282; J0456; J0612; J0692; J0696; J1450; J1644; J1650; J1940; J2060; J2250; J2371; J2405; J2470; J2765; J2919; J3370; J3411; J3480; J7030; J7040; J7050; J7060; J7070; J7120; J7512; P9016; P9047; Q9967